=== PATIENT | male | born 1970 | race American Indian/Alaskan Native ===

== ENCOUNTER 2019-05-28 17:39 | Emergency (ER) | payer SELFPAY ==
--- NOTE | 2019-05-28 18:09 | Emergency Department Report ---
<MANUEL GUY - Last Filed: 05/28/19 18:05> ED CPR HPI - General Stated Complaint: CARDIAC ARREST Time Seen by Provider: 05/28/19 18:03 Source: EMS - History of Present Illness Initial Comments: 49-year-old male, a known past history, presents to the ED in cardiac arrest. Patient had a witnessed arrest at work, bystander CPR was performed. Upon EMS arrival patient was initially found to be in asystole. Patient has been down for approximately 30 minutes prior to ED arrival. EMS reports patient went into vfib, and was defibrillated. Patient has been given an epi 3 by EMS. Had brief return of pulse for approx 2 min, then arrested again. States last rhythm was V. fib. Complaint: other (collapsed at work) Place: work Bystander CPR Performed: Yes Initial Findings in the Field: unresponsive, no respirations, no pulse ROSC in the Field: Yes (brief, approx 2 min) Treatments Prior to Arrival: intubation, chest compressions, defribrillated shocks #, epinephrine mgs # (3) ED Review of Systems Comment: Unobtainable due to pts medical conditions ED Physical Exam - Head Head exam: Present: atraumatic, normocephalic - Eye Eye exam: Present: conjunctival injection, other (eyes slightly exophthalmic) Pupils: Present: other (fixed and dilated bilaterally) - ENT ENT exam: Present: other (ET tube in place) - Neck Neck exam: Present: normal inspection - Respiratory Respiratory exam: Present: other (no spontaneous breaths) - Cardiovascular Cardiovascular Exam: Present: other (no palpable pulse) - GI/Abdominal GI/Abdominal exam: Present: soft. Absent: distended - Extremities Exam Extremities exam: Present: normal inspection - Neurological Exam Neurological exam: Present: other (GCS= 3) - Skin Skin exam: Present: warm, dry, intact, normal color ED Medical Decision Making - Medical Decision Making Please see nurse's not for code details. ACLS was continued here in ED. Pt given amiodarone, defibrilated multiple times. Unable to achieve ROSC. Pt down for approx 45 min. Time of called at 17:53 ED Disposition Clinical Impression: Cardiac arrest Disposition: DC-20 Condition: Stable <EDIN IBRAHIM - Last Filed: 05/30/19 04:53> ED CPR HPI - History of Present Illness Initial Comments: Patient's arrived in the ED at this time states that her has a known history of poorly controlled hypertension and CHF but no known CAD/stent with history of previous cardiac catheterization. ED Review of Systems ROS: Stated complaint: CARDIAC ARREST Other details as noted in HPI ED Past Medical Hx - Past Medical History Hx Hypertension: Yes Hx Congestive Heart Failure: Yes ED Medical Decision Making - Medical Decision Making Patient's arrives to the ED and was informed of her 's . Critical care attestation.: If time is entered above; I have spent that time in minutes in the direct care of this critically ill patient, excluding procedure time. ED Disposition Is pt being admited?: No
[2019-05-28] MEDS ORDERED: EPINEPHrine 1:10,000 1 MG/10 ML SYRINGE ONE (18:15)
[2019-05-28] MEDS ORDERED: AMIODARONE 150 MG/3 ML INJ IV ONE (18:15)
[2019-05-28] MEDS ORDERED: SODIUM BICARB 8.4% 50 MEQ/50 ML SYRINGE IV ONE (18:15)
== END 2019-05-29 01:06 ==
LOC: ED 17:39
DX: I46.9 Cardiac arrest, cause unspecified (principal); I11.0 Hypertensive heart disease with heart failure; I50.9 Heart failure, unspecified
CPT/HCPCS: 92950; 99285; J0171; J0282